=== PATIENT | male | born 1930 | race Caucasian/White ===

== ENCOUNTER 2016-06-28 08:00 | Outpatient (CLI) | payer MEDICARE, OTHER | END 2016-06-28 23:59 | DX: M06.4 Inflammatory polyarthropathy (principal) ==

== ENCOUNTER 2016-07-09 09:01 | Outpatient (CLI) | payer MEDICARE, OTHER | END 2016-07-09 09:02 | disposition home or self-care (01) | DX: E78.5 Hyperlipidemia, unspecified (principal); E11.9 Type 2 diabetes mellitus without complications; T84.418A Breakdown (mechanical) of other internal orthopedic devices, implants and grafts, initial encounter; M06.4 Inflammatory polyarthropathy; I10 Essential (primary) hypertension ==

== ENCOUNTER 2016-07-23 11:53 | Outpatient (CLI) | payer MEDICARE, OTHER | END 2016-07-23 23:59 | DX: R94.5 Abnormal results of liver function studies (principal) ==

== ENCOUNTER 2016-07-29 09:10 | Outpatient (CLI) | payer MEDICARE, OTHER | END 2016-07-29 09:11 | disposition home or self-care (01) | DX: R94.5 Abnormal results of liver function studies (principal) ==

== ENCOUNTER 2016-11-02 01:30 | Outpatient (CLI) | payer MEDICARE, OTHER | END 2016-11-02 01:31 | disposition critical access hospital (66) | LOC: EMS 01:30 | PROVIDERS: ATTEND Surgery | DX: T82.594A Other mechanical complication of infusion catheter, initial encounter (principal) ==

== ENCOUNTER 2016-11-02 01:34 | Emergency (ER) | payer MEDICARE, OTHER ==
--- NOTE | 2016-11-02 01:43 | ED Physician Documentation ---
History of Present Illness - Stated complaint Stated Complaint: PICC LINE OBSTRUCTION - History obtained from History obtained from: Patient - History of Present Illness Timing: Prior to arrival - Additonal information Additional information: Patient sent [place] [facility] [place] he has a two-port PICC line in E through which he is receiving antibiotics. Shortly before arrival, both ports stopped functioning and thus he is sent to ED for evaluation. Patient has no LUE pain c/o (he is receiving antibiotics for left hip infection, and he says he has left hip pain that is no worse than it has been). Review of Systems Constitutional: denies: Fever Musculoskeletal: reports: Joint pain (left hip (not new)). denies: Extremity pain, Extremity swelling PD PAST MEDICAL HISTORY - Past Medical History Cardiovascular: Congestive heart failure, Atrial fibrillation Endocrine/Autoimmune: Type 2 diabetes, HyPOthyroidism Musculoskeletal: Osteoarthritis - Past Surgical History Ortho: Hip replacement, Rotator cuff repair Cardiovascular: CABG, Valve replacement - Present Medications Home Medications: Ambulatory Orders Medication Instructions Recorded Confirmed Albuterol Sulfate [Albuterol 2 puffs IH QID #1 [id number] 08/19/14 Sulfate Hfa] Atorvastatin [Lipitor] 40 mg ORAL QPM 08/19/14 08/19/14 Carvedilol 12.5 mg PO BID 08/19/14 08/19/14 Cetirizine [ZyrTEC] 10 mg PO DAILY 08/19/14 08/19/14 Cholecalciferol (Vitamin D3) 5,000 unit PO DAILY 08/19/14 08/19/14 [Vitamin D] FLUoxetine [PROzac] 10 mg PO DAILY 08/19/14 08/19/14 Furosemide 10 mg PO DAILY 08/19/14 08/19/14 Glucosamine Sulfate Dipot Chlr 1,000 mg PO BID 08/19/14 08/19/14 [Glucosamine] Levothyroxine [Synthroid] 50 mcg PO QDAC 08/19/14 08/19/14 Methenam/Me Blue/Ba/Salicy/Hyo 1 each PO DAILY 08/19/14 08/19/14 [Hyophen Tablet] Methenamine Hippurate 1 gm PO QPM 08/19/14 08/19/14 Oxybutynin [Ditropan] 15 mg PO BID 08/19/14 08/19/14 Rivaroxaban [Xarelto] 20 mg PO DAILY 08/19/14 08/19/14 metFORMIN [Glucophage] 1,000 mg PO BIDWM 08/19/14 08/19/14 predniSONE [Deltasone] 40 mg PO DAILY 5 Days 08/19/14 - Allergies Allergies/Adverse Reactions: Allergies Allergy/AdvReac Type Severity Reaction Status Date / Time No Known Drug Allergies Allergy Verified 08/19/14 12:49 - Social History Does the pt smoke?: No Smoking Status: Former smoker Does the pt drink ETOH?: No Does the pt have substance abuse?: No - Immunizations Immunizations are current?: Yes PD ED PE NORMAL - Vitals Vital signs reviewed: Yes - General General: Alert and oriented X 3, No acute distress, Well developed/nourished - Extremities Extremities: Other (PICC line LUE; no erythema, tenderness, palpable cord. NVI left hand (2+ left radial pulse, warm, pink, brisk capillary refill)) Results - Vitals Vitals: Vital Signs - 24 hr 11/02/16 01:35 Respiratory 17 Rate Oxygen O2 Source Room air PD MEDICAL DECISION MAKING - ED course Complexity details: considered differential, d/w patient ED course: Shortly after arrival to ED, RN used heparin flush and rapidly was able to flush one of the two PICC line ports; flushes easily and without resistance. He was discharged back to [facility] [place] Departure - Departure Disposition: 01 Home, Self Care Clinical Impression: Occlusion of peripherally inserted central catheter (PICC) line Qualifiers: Encounter type: initial encounter Qualified Code(s): T82.898A - Other specified complication of vascular prosthetic devices, implants and grafts, initial encounter Condition: Good Instructions: ED PICC Line Care Discharge Date/Time: 11/02/16 01:53
== END 2016-11-02 01:53 | disposition home or self-care (01) ==
LOC: EDUNIT# → EDBD → ED 01:34 → SUPCPDRO 01:34 → ED 01:53
DX: T82.898A Other specified complication of vascular prosthetic devices, implants and grafts, initial encounter (principal); Y84.8 Other medical procedures as the cause of abnormal reaction of the patient, or of later complication, without mention of misadventure at the time of the procedure; E11.9 Type 2 diabetes mellitus without complications; Z79.84 Long term (current) use of oral hypoglycemic drugs; I48.91 Unspecified atrial fibrillation; Z79.01 Long term (current) use of anticoagulants; Z87.891 Personal history of nicotine dependence
CPT/HCPCS: 99282; 99283

== ENCOUNTER 2016-11-02 01:49 | Outpatient (CLI) | payer MEDICARE, OTHER | END 2016-11-02 01:50 | LOC: EMS 01:49 | PROVIDERS: ATTEND Surgery | DX: T82.594A Other mechanical complication of infusion catheter, initial encounter (principal); Z74.01 Bed confinement status | CPT/HCPCS: A0425; A0428; A0429 ==

== ENCOUNTER 2016-11-16 09:00 | Outpatient (CLI) | payer MEDICARE, OTHER ==
[2016-11-16 23:23] LABS: CALCIUM 8.8 mg/dL (8.5-10.3); CREATININE 0.7 mg/dL (0.6-1.2)
[2016-11-16 23:28] LABS: BASOPHILS # (AUTO) 0.2 10^3/uL (0.0-0.1); BASOPHILS % (AUTO) 2.9 %; EOSINOPHILS # (AUTO) 0.6 10^3/uL (0.0-0.7); EOSINOPHILS % (AUTO) 9.3 %; HGB - HEMOGLOBIN 10.5 g/dL (14.0-18.0); LYMPHOCYTES # (AUTO) 1.9 10^3/uL (1.5-3.5); LYMPHOCYTES % (AUTO) 27.6 %; MEAN CORPUSCULAR HEMOGLOBIN 30.1 pg (27.0-31.0); MEAN CORPUSCULAR VOLUME 91.1 fL (80.0-94.0); MEAN PLATELET VOLUME 7.8 fL (7.4-11.4); MONOCYTES # (AUTO) 0.7 10^3/uL (0.0-1.0); MONOCYTES % (AUTO) 10.6 %; NEUTROPHILS # (AUTO) 3.3 10^3/uL (1.5-6.6); NEUTROPHILS % (AUTO) 49.6 %; NUCLEATED RED BLOOD CELLS AUTO 0.1 /100WBC; RED BLOOD COUNT 3.51 10^6/uL (4.70-6.10); RED CELL DISTRIBUTION WIDTH 15.8 % (12.0-15.0); UNCORRECTED WHITE BLOOD COUNT 6.7 x10^3/uL; WHITE BLOOD COUNT 6.7 x10^3/uL (4.8-10.8)
== END 2016-11-16 09:01 | disposition home or self-care (01) ==
LOC: LAB.R 09:00
DX: E11.9 Type 2 diabetes mellitus without complications (principal); T84.52XD Infection and inflammatory reaction due to internal left hip prosthesis, subsequent encounter
CPT/HCPCS: 80048; 85025

== ENCOUNTER 2016-11-18 08:00 | Outpatient (CLI) | payer MEDICARE, OTHER ==
[2016-11-18 22:55] LABS: ALBUMIN/GLOBULIN RATIO 0.8 (1.0-2.2); BILIRUBIN,TOTAL 0.4 mg/dL (0.2-1.0); BUN - BLOOD UREA NITROGEN 15 mg/dL (6-20); CALCIUM 8.8 mg/dL (8.5-10.3); CARBON DIOXIDE - CO2 27 mmol/L (21-32); CHLORIDE 100 mmol/L (101-111); CREATININE 0.8 mg/dL (0.6-1.2); GFR - MDRD 92 (>89); GLUCOSE 101 mg/dL (70-100); SODIUM 136 mmol/L (135-145); TOTAL PROTEIN 7.5 g/dL (6.7-8.2)
== END 2016-11-18 08:01 | disposition home or self-care (01) ==
LOC: LAB.R 08:00
PROVIDERS: ATTEND Internal Medicine
DX: T84.52XD Infection and inflammatory reaction due to internal left hip prosthesis, subsequent encounter (principal)
CPT/HCPCS: 80053; 85651; 86140

== ENCOUNTER 2016-11-25 16:41 | Outpatient (CLI) | payer MEDICARE, OTHER ==
[2016-11-25 13:28] LABS: BASOPHILS # (AUTO) 0.1 10^3/uL (0.0-0.1); BASOPHILS % (AUTO) 2.2 %; EOSINOPHILS # (AUTO) 0.3 10^3/uL (0.0-0.7); EOSINOPHILS % (AUTO) 9.8 %; HGB - HEMOGLOBIN 12.2 g/dL (14.0-18.0); LYMPHOCYTES # (AUTO) 0.9 10^3/uL (1.5-3.5); LYMPHOCYTES % (AUTO) 26.5 %; MEAN CORPUSCULAR HEMOGLOBIN 29.8 pg (27.0-31.0); MEAN CORPUSCULAR HGB CONC 33.1 g/dL (32.0-36.0); MEAN CORPUSCULAR VOLUME 90.2 fL (80.0-94.0); MEAN PLATELET VOLUME 7.8 fL (7.4-11.4); MONOCYTES # (AUTO) 0.5 10^3/uL (0.0-1.0); MONOCYTES % (AUTO) 14.4 %; NEUTROPHILS # (AUTO) 1.6 10^3/uL (1.5-6.6); NEUTROPHILS % (AUTO) 47.1 %; NUCLEATED RED BLOOD CELLS AUTO 0.1 /100WBC; RED CELL DISTRIBUTION WIDTH 16.3 % (12.0-15.0); UNCORRECTED WHITE BLOOD COUNT 3.3 x10^3/uL; WHITE BLOOD COUNT 3.3 x10^3/uL (4.8-10.8)
[2016-11-25 13:46] LABS: ALBUMIN/GLOBULIN RATIO 0.9 (1.0-2.2); BILIRUBIN,TOTAL 0.3 mg/dL (0.2-1.0); BUN - BLOOD UREA NITROGEN 13 mg/dL (6-20); CALCIUM 8.4 mg/dL (8.5-10.3); CARBON DIOXIDE - CO2 28 mmol/L (21-32); CHLORIDE 104 mmol/L (101-111); CREATININE 0.5 mg/dL (0.6-1.2); GFR - MDRD 159 (>89); GLUCOSE 98 mg/dL (70-100); POTASSIUM 3.7 mmol/L (3.5-5.0); SODIUM 137 mmol/L (135-145); TOTAL PROTEIN 6.8 g/dL (6.7-8.2)
== END 2016-11-25 16:42 | disposition home or self-care (01) ==
LOC: LAB.R 16:41
DX: T84.52XD Infection and inflammatory reaction due to internal left hip prosthesis, subsequent encounter (principal)
CPT/HCPCS: 80053; 85025; 85651; 86140

== ENCOUNTER 2016-12-01 08:00 | Outpatient (CLI) | payer MEDICARE, OTHER ==
[2016-12-01 23:49] LABS: BASOPHILS # (AUTO) 0.1 10^3/uL (0.0-0.1); BASOPHILS % (AUTO) 1.3 %; EOSINOPHILS # (AUTO) 0.3 10^3/uL (0.0-0.7); EOSINOPHILS % (AUTO) 7.5 %; HCT - HEMATOCRIT 37.7 % (42.0-52.0); HGB - HEMOGLOBIN 12.4 g/dL (14.0-18.0); LYMPHOCYTES # (AUTO) 1.1 10^3/uL (1.5-3.5); LYMPHOCYTES % (AUTO) 27.1 %; MEAN CORPUSCULAR HEMOGLOBIN 29.7 pg (27.0-31.0); MEAN CORPUSCULAR HGB CONC 32.9 g/dL (32.0-36.0); MEAN CORPUSCULAR VOLUME 90.2 fL (80.0-94.0); MEAN PLATELET VOLUME 7.6 fL (7.4-11.4); MONOCYTES # (AUTO) 0.5 10^3/uL (0.0-1.0); MONOCYTES % (AUTO) 11.2 %; NEUTROPHILS # (AUTO) 2.2 10^3/uL (1.5-6.6); NEUTROPHILS % (AUTO) 52.9 %; NUCLEATED RED BLOOD CELLS AUTO 0.1 /100WBC; RED BLOOD COUNT 4.18 10^6/uL (4.70-6.10); RED CELL DISTRIBUTION WIDTH 16.4 % (12.0-15.0); UNCORRECTED WHITE BLOOD COUNT 4.2 x10^3/uL; WHITE BLOOD COUNT 4.2 x10^3/uL (4.8-10.8)
[2016-12-01 23:57] LABS: CALCIUM 8.7 mg/dL (8.5-10.3); CREATININE 0.6 mg/dL (0.6-1.2); POTASSIUM 3.8 mmol/L (3.5-5.0)
== END 2016-12-01 08:01 | disposition home or self-care (01) ==
LOC: LAB.R 08:00
DX: T84.52XD Infection and inflammatory reaction due to internal left hip prosthesis, subsequent encounter (principal)
CPT/HCPCS: 80048; 85025; 85651; 86140

== ENCOUNTER 2016-12-28 08:00 | Outpatient (CLI) | payer MEDICARE, OTHER ==
[2016-12-28 12:48] LABS: BASOPHILS # (AUTO) 0.1 10^3/uL (0.0-0.1); BASOPHILS % (AUTO) 1.4 %; EOSINOPHILS # (AUTO) 0.3 10^3/uL (0.0-0.7); EOSINOPHILS % (AUTO) 6.2 %; HCT - HEMATOCRIT 31.8 % (42.0-52.0); HGB - HEMOGLOBIN 10.6 g/dL (14.0-18.0); LYMPHOCYTES # (AUTO) 1.5 10^3/uL (1.5-3.5); LYMPHOCYTES % (AUTO) 30.4 %; MEAN CORPUSCULAR HEMOGLOBIN 29.8 pg (27.0-31.0); MEAN CORPUSCULAR HGB CONC 33.3 g/dL (32.0-36.0); MEAN CORPUSCULAR VOLUME 89.6 fL (80.0-94.0); MONOCYTES # (AUTO) 0.5 10^3/uL (0.0-1.0); MONOCYTES % (AUTO) 10.7 %; NEUTROPHILS # (AUTO) 2.6 10^3/uL (1.5-6.6); NEUTROPHILS % (AUTO) 51.3 %; RED BLOOD COUNT 3.54 10^6/uL (4.70-6.10); RED CELL DISTRIBUTION WIDTH 16.5 % (12.0-15.0)
[2016-12-28 13:24] LABS: HEMOGLOBIN A1C 0.45 g/dL
[2016-12-28 13:26] LABS: ALBUMIN/GLOBULIN RATIO 0.9 (1.0-2.2); BILIRUBIN,TOTAL 0.6 mg/dL (0.2-1.0); BUN - BLOOD UREA NITROGEN 17 mg/dL (6-20); CALCIUM 8.6 mg/dL (8.5-10.3); CARBON DIOXIDE - CO2 30 mmol/L (21-32); CHLORIDE 105 mmol/L (101-111); CHOL/HDL RATIO 3.6 (<5.0); CHOLESTEROL 113 mg/dL; CREATININE 0.7 mg/dL (0.6-1.2); GFR - MDRD 107 (>89); GLUCOSE 117 mg/dL (70-100); HDL CHOLESTEROL 31 mg/dL; LDL/HDL RATIO 1.9 (<3.6); POTASSIUM 3.9 mmol/L (3.5-5.0); SODIUM 140 mmol/L (135-145); TOTAL PROTEIN 7.4 g/dL (6.7-8.2); TRIGLYCERIDES 111 mg/dL; VLDL CHOLESTEROL 22 mg/dL
== END 2016-12-28 08:01 | disposition home or self-care (01) ==
LOC: LAB.WCP 08:00
PROVIDERS: ATTEND Family Medicine
DX: Z96.642 Presence of left artificial hip joint (principal); R94.5 Abnormal results of liver function studies; R70.0 Elevated erythrocyte sedimentation rate; M50.30 Other cervical disc degeneration, unspecified cervical region; I48.91 Unspecified atrial fibrillation; E11.40 Type 2 diabetes mellitus with diabetic neuropathy, unspecified; I10 Essential (primary) hypertension
CPT/HCPCS: 36415; 80053; 80061; 83036; 84443; 85025

== ENCOUNTER 2017-06-21 08:00 | Outpatient (CLI) | payer MEDICARE, OTHER ==
[2017-06-21 12:56] LABS: ALBUMIN 3.9 g/dL (3.2-5.5); BILIRUBIN,TOTAL 0.7 mg/dL (0.2-1.0); CALCIUM 8.8 mg/dL (8.5-10.3); CREATININE 0.6 mg/dL (0.6-1.2); TOTAL PROTEIN 7.7 g/dL (6.7-8.2)
[2017-06-21 13:02] LABS: HB2 TOTAL 13.5 g/dL; HEMOGLOBIN A1C 0.6 g/dL; HEMOGLOBIN A1C % 6.2 % (4.6-6.2)
== END 2017-06-21 08:01 | disposition home or self-care (01) ==
LOC: LAB.WCP 08:00
PROVIDERS: ATTEND Family Medicine
DX: E11.40 Type 2 diabetes mellitus with diabetic neuropathy, unspecified (principal); Z79.891 Long term (current) use of opiate analgesic; I48.91 Unspecified atrial fibrillation; I10 Essential (primary) hypertension
CPT/HCPCS: 36415; 80053; 83036

== ENCOUNTER 2017-08-01 08:00 | Outpatient (CLI) | payer MEDICARE, OTHER ==
[2017-08-01 13:34] LABS: CREATININE 0.8 mg/dL (0.6-1.2)
== END 2017-08-01 08:01 | disposition home or self-care (01) ==
LOC: LAB.WCP 08:00
PROVIDERS: ATTEND Urology
DX: R31.0 Gross hematuria (principal)
CPT/HCPCS: 36415; 82565; 84520